=== PATIENT | female | born 1990 | race American Indian/Alaskan Native ===

== ENCOUNTER 2021-08-03 00:18 | Emergency (ER) | payer MEDICAID, OTHER ==
[2021-08-03] MEDS ORDERED: Ondansetron 4 MG/2 ML SDV IVPUSH ONE (00:42)
[2021-08-03] MEDS ORDERED: Morphine 4 MG/ML Syringe IVPUSH ONE (00:42)
[2021-08-03] MEDS ORDERED: Ketorolac 30 MG/ML SDV IVPUSH ONE (00:42)
--- NOTE | 2021-08-03 00:42 | EDM.PDOC ---
ED HPI GENERAL MEDICAL PROBLEM - General Chief Complaint: Respiratory Problem Stated Complaint: SOB Time Seen by Provider: 08/03/21 00:23 - History of Present Illness INITIAL COMMENTS - FREE TEXT/NARRATIVE: 31-year-old female with a history of mild asthma who is been symptomatic with Covid for the last 10 days is presenting with persistent cough and shortness of breath. It worsens when she moves it worsens particularly when she lays flat. Patient was given prescriptions for Decadron Tessalon Perles and [place] by her outpatient provider she also has an albuterol inhaler which she states that these are not significantly changing her symptoms. She has some ongoing fevers as well as diffuse myalgias. Symptoms are without alleviating factors radiation or other associated symptoms. Upper Chest Pain Score (Numeric/FACES): 10 - Related Data Allergies Allergy/AdvReac Type Severity Reaction Status Date / Time No Known Allergies Allergy Verified 01/13/14 19:29 MDT Past Medical History Respiratory History: Reports: Other (See Below) Other Respiratory History: covid + Social & Family History - Tobacco Use Tobacco Use Status *Q: Never Tobacco User Second Hand Smoke Exposure: No - Recreational Drug Use Recreational Drug Use: No ED ROS GENERAL - Review of Systems Review Of Systems: See Below Free Text/Narrative/Comment: General: Per HPI Skin: No rash. Eyes: No vision problems. ENT: No sore throat. Neck: No neck stiffness. Respiratory: Per HPI Cardiac: Per HPI Gastrointestinal: No nausea, vomiting or abdominal pain, positive for diarrhea Urinary: No dysuria. Musculoskeletal: Per HPI. Neurologic: No headache. ED EXAM, GENERAL - Physical Exam Exam: See Below Free Text/Narrative:: General Appearance: No acute distress, appears comfortable Skin: No rash HEENT: Normocephalic/atraumatic, sclera anicteric, mucous membranes moist Neck: Normal range of motion Chest and Lungs: Bilateral breath sounds, clear to auscultation Cardiovascular: Regular rate and rhythm, no murmur Abdomen: Soft, non-tender Back: Normal Musculoskeletal: No edema or tenderness Neurologic: Awake, alert, no obvious deficits, moving all extremities Psychiatric: Appropriate, cooperative #1 Interpretation EKG Date: 08/03/21 Time: 00:40 EKG Interpretation Comments: Sinus rhythm rate of 94 isolated T wave inversions in V3 EKG otherwise unremarkable no acute ischemia intervals unremarkable Course - Vital Signs Last Recorded V/S: Last Vital Signs Temp Pulse 67 08/03/21 02:57 Resp 19 08/03/21 02:57 BP 92/48 L 08/03/21 02:57 Pulse Ox 95 08/03/21 02:57 - Orders/Labs/Meds Labs: Laboratory Tests 08/03/21 08/03/21 08/03/21 Range/Units 01:00 01:00 01:00 WBC 11.51 H (4.0-11.0) K/uL RBC 4.34 (4.30-5.90) M/uL Hgb 12.7 (12.0-16.0) g/dL Hct 36.6 (36.0-46.0) % MCV 84.3 (80.0-98.0) fL MCH 29.3 (27.0-32.0) pg MCHC 34.7 (31.0-37.0) g/dL RDW Std Deviation 41.7 (28.0-62.0) fl RDW Coeff of Ronak 14 (11.0-15.0) % Plt Count 328 (150-400) K/uL MPV 8.80 (7.40-12.00) fL Nucleated RBC % 0.0 /100WBC Nucleated RBCs # 0 K/uL Sodium 137 (136-145) mmol/L Potassium 3.4 L (3.5-5.1) mmol/L Chloride 102 (98-107) mmol/L Carbon Dioxide 19.9 L (21.0-32.0) mmol/L BUN 16 (7.0-18.0) mg/dL Creatinine 0.9 (0.6-1.0) mg/dL Est Cr Clr Drug Dosing 67.09 mL/min Estimated GFR (MDRD) > 60.0 ml/min Glucose 138 H (74-106) mg/dL Calcium 7.6 L (8.5-10.1) mg/dL Total Bilirubin 0.4 (0.2-1.0) mg/dL AST 85 H (15-37) IU/L ALT 138 H (14-63) IU/L Alkaline Phosphatase 79 (46-116) U/L Troponin I < 0.050 (0.000-0.056) ng/mL B-Natriuretic Peptide (<100) PG/ML Total Protein 7.9 (6.4-8.2) g/dL Albumin 2.8 L (3.4-5.0) g/dL Globulin 5.1 H (2.6-4.0) g/dL Albumin/Globulin Ratio 0.6 L (0.9-1.6) 08/03/21 Range/Units 01:00 WBC (4.0-11.0) K/uL RBC (4.30-5.90) M/uL Hgb (12.0-16.0) g/dL Hct (36.0-46.0) % MCV (80.0-98.0) fL MCH (27.0-32.0) pg MCHC (31.0-37.0) g/dL RDW Std Deviation (28.0-62.0) fl RDW Coeff of Ronak (11.0-15.0) % Plt Count (150-400) K/uL MPV (7.40-12.00) fL Nucleated RBC % /100WBC Nucleated RBCs # K/uL Sodium (136-145) mmol/L Potassium (3.5-5.1) mmol/L Chloride (98-107) mmol/L Carbon Dioxide (21.0-32.0) mmol/L BUN (7.0-18.0) mg/dL Creatinine (0.6-1.0) mg/dL Est Cr Clr Drug Dosing mL/min Estimated GFR (MDRD) ml/min Glucose (74-106) mg/dL Calcium (8.5-10.1) mg/dL Total Bilirubin (0.2-1.0) mg/dL AST (15-37) IU/L ALT (14-63) IU/L Alkaline Phosphatase (46-116) U/L Troponin I (0.000-0.056) ng/mL B-Natriuretic Peptide 11 (<100) PG/ML Total Protein (6.4-8.2) g/dL Albumin (3.4-5.0) g/dL Globulin (2.6-4.0) g/dL Albumin/Globulin Ratio (0.9-1.6) Meds: Medications Discontinued Medications Generic Name Dose Route Start Last Admin Trade Name Freq PRN Reason Stop Dose Admin Sodium Chloride 1,000 mls @ 999 mls/hr 08/03/21 01:41 08/03/21 02:10 Normal Saline IV 08/03/21 02:41 999 mls/hr .Bolus ONE Administration Ketorolac Tromethamine 15 mg 08/03/21 00:42 08/03/21 01:07 Ketorolac 30 Mg/Ml Sdv IVPUSH 08/03/21 00:43 15 mg ONETIME ONE Administration Morphine Sulfate 4 mg 08/03/21 00:42 08/03/21 00:51 Morphine 4 Mg/Ml Syringe IVPUSH 08/03/21 00:43 Not Given ONETIME ONE Morphine Sulfate 4 mg 08/03/21 00:52 08/03/21 01:07 Morphine 2 Mg/Ml Syringe IVPUSH 08/03/21 00:53 4 mg ONETIME ONE Administration Ondansetron HCl 4 mg 08/03/21 00:42 08/03/21 01:07 Ondansetron 4 Mg/2 Ml Sdv IVPUSH 08/03/21 00:43 4 mg ONETIME ONE Administration Departure - Departure Time of Disposition: 03:05 Disposition: Home, Self-Care 01 Condition: Fair Clinical Impression: Pneumonia due to COVID-19 virus - Discharge Information *PRESCRIPTION DRUG MONITORING PROGRAM REVIEWED*: Not Applicable *COPY OF PRESCRIPTION DRUG MONITORING REPORT IN PATIENT IRINEO: Not Applicable Instructions: COVID-19 Frequently Asked Questions, Prone Position Therapy Forms: ED Department Discharge Additional Instructions: Your vital signs today were good and you do not currently meet criteria to be admitted to the hospital. I encourage you to try continue to take the medications that your other doctor prescribed for you. If your symptoms worsen or you have more trouble breathing please return to the ER. The following information is given to patients seen in the emergency department who are being discharged to home. This information is to outline your options for follow-up care. We provide all patients seen in our emergency department with a follow-up referral. The need for follow-up, as well as the timing and circumstances, are variable depending upon the specifics of your emergency department visit. If you don't have a primary care physician on staff, we will provide you with a referral. We always advise you to contact your personal physician following an emergency department visit to inform them of the circumstance of the visit and for follow-up with them and/or the need for any referrals to a consulting specialist. The emergency department will also refer you to a specialist when appropriate. This referral assures that you have the opportunity for follow-up care with a specialist. All of these measure are taken in an effort to provide you with optimal care, which includes your follow-up. Under all circumstances we always encourage you to contact your private physician who remains a resource for coordinating your care. When calling for follow-up care, please make the office aware that this follow-up is from your recent emergency room visit. If for any reason you are refused follow-up, please contact the [facility] Emergency Department at and asked to speak to the emergency department charge nurse. Sepsis Event Note (ED) - Focused Exam Vital Signs: Vital Signs Pulse Resp BP Pulse Ox 08/03/21 02:57 67 19 92/48 L 95 08/03/21 02:05 64 22 H 91/49 L 95 08/03/21 01:58 68 20 82/50 L 95 08/03/21 01:50 70 21 H 85/46 L 94 L 08/03/21 01:43 69 21 H 85/37 L 93 L 08/03/21 01:39 64 22 H 87/38 L 93 L 08/03/21 00:20 100 19 111/65 92 L - Assessment/Plan Assessment:: 31-year-old female presenting with signs and symptoms that are consistent with ongoing COVID-19 infection. Chest x-ray has been ordered as well as patient blood work to assess hydration status will provide Toradol and morphine as well as Zofran for symptom control and reassess. PE considered but there is no tachycardia or significant hypoxia. ACS felt unlikely. Patient has clear proven Covid with symptoms that are consistent with that. She is unfortunately outside the window to consider Regeneron and is not hypoxic enough to meet inpatient criteria. 0205: Chest x-ray with findings consistent with Covid radiology also called mild cardiomegaly and for this reason troponin BNP added to blood work these are unremarkable. Patient has some mild findings of dehydration which is not unexpected but renal function is good nothing suggest the need for admission to the hospital at this point. Patient did experience some mild hypotension after morphine and IV fluid is currently infusing. 0305: Patient's hypotension resolved. She states that she feels a little bit better. No indication for admission at this point. We discussed proning therapy at home and anticipatory guidance was provided. Patient discharged to continue follow-up as an outpatient. Room air saturation 94-95 normal work of breathing
[2021-08-03] MEDS ORDERED: Morphine 2 MG/ML SYRINGE IVPUSH ONE (00:52)
--- NOTE | 2021-08-03 01:10 | CR ---
INDICATION: Shortness of breath, COVID-19 infection TECHNIQUE: Chest radiograph 1 view COMPARISON: None FINDINGS: The sensitivity and specificity of the exam are moderately limited by the patient`s body habitus. Mediastinum: The mediastinum is normal in appearance. Mild cardiomegaly is noted. Lung: Small lung volumes are present with moderate patchy bilateral airspace infiltrates seen. No sign of pleural effusion seen. No pneumothorax is identified. Bone and Soft tissue: Unremarkable for age. IMPRESSIONS: 1. Small lung volumes are present with moderate patchy bilateral airspace infiltrates seen. 2. Mild cardiomegaly is noted. Dictated by Elmer Croft MD @ 08/03/2021 1:08:54 AM Dictated by: Elmer Croft MD @ 08/03/2021 01:08:59 (Electronically Signed)
[2021-08-03 01:38] LABS: BLOOD UREA NITROGEN,BUN 16 mg/dL (7.0-18.0); CARBON DIOXIDE,CO2 19.9 mmol/L (21.0-32.0); CHLORIDE,CL 102 mmol/L (98-107); GLUCOSE RANDOM 138 mg/dL (74-106); POTASSIUM,K 3.4 mmol/L (3.5-5.1); SODIUM,NA 137 mmol/L (136-145)
[2021-08-03] MEDS ORDERED: Sodium Chloride 0.9% 1,000 ML IV ONE (01:41)
== END 2021-08-03 03:15 | disposition home or self-care (01) ==
LOC: MW.ED 00:18
DX: U07.1 COVID-19 (principal); J12.82 Pneumonia due to coronavirus disease 2019
CPT/HCPCS: 36415; 71045; 80053; 83880; 84484; 85027; 93005; 96374; 96375; 99285; J1885; J2270; J2405; J7030

== ENCOUNTER 2023-06-15 12:38 | Emergency (ER) | payer MEDICAID, OTHER ==
[2023-06-15] MEDS ORDERED: traMADol 50 MG Tab PO ONE (14:25)
[2023-06-15] MEDS ORDERED: Ibuprofen 600 MG Tab PO ONE (14:25)
== END 2023-06-15 14:34 | disposition home or self-care (01) ==
LOC: MW.ED 12:38
DX: S93.402A Sprain of unspecified ligament of left ankle, initial encounter (principal); Z86.16 Personal history of COVID-19; Z88.5 Allergy status to narcotic agent; X50.1XXA Overexertion from prolonged static or awkward postures, initial encounter; Y93.01 Activity, walking, marching and hiking; Y92.512 Supermarket, store or market as the place of occurrence of the external cause
CPT/HCPCS: 73610; 99283; A9270